=== PATIENT | male | born 1965 | race Caucasian/White ===

== ENCOUNTER 2019-12-14 21:37 | Emergency (ER) | payer MEDICARE, MEDICAID, SELFPAY ==
[2019-12-14 22:06] VITALS: BP 164/84; PULSE 70; RESP 14; O2SAT 100; BMI 20.3
[2019-12-14 22:11] VITALS: BMI 49.4
[2019-12-14 22:19] VITALS: BP 138/75; PULSE 107; RESP 15; TEMP 37; O2SAT 98
[2019-12-15] VITALS (13 sets, daily range): BP systolic 127–201; BP diastolic 83–108; PULSE 64–88; RESP 15–22; TEMP 36.6; O2SAT 98–100
--- NOTE | 2019-12-15 01:05 | ECG_ITS ---
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 Measurements Intervals [place] Rate: 60 P: 34 DC: 220 QRS: 4 QRSD: 93 T: 39 QT: 424 QTc: 426 Interpretive Statements SINUS RHYTHM WITH FIRST DEGREE AV BLOCK Compared to ECG 11/26/2017 16:29:05 First degree AV block now present Electronically Signed On 12-15-2019 10:38:44 CDT by Zackery Toney M.D. [id number]
--- NOTE | 2019-12-15 01:06 | XR_ITS ---
WS: [id number] PORTABLE CHEST HISTORY: dyspnea COMPARISON: 05/09/2017 RIGHT Port-A-Cath with tip in the distal SVC. Mild pulmonary hyperexpansion. No pneumonia. Normal vasculature. No pleural effusion or pneumothorax. Cardiac size: Normal. Mediastinum/Aorta: Normal mediastinum. Healing fracture proximal LEFT humerus. XR/XR chest 1V portable [id number] IMPRESSION: Chronic emphysema. No CHF.
--- NOTE | 2019-12-15 01:20 | ED_ITS ---
HPI - General Adult General: Chief complaint: Fever Stated complaint: swelling in feet/lower legs Time Seen by Provider: 12/15/19 00:31 History of Present Illness: HPI narrative: This patient is a 54-year-old male presenting today with multiple complaints. Although the triage note says fever the patient denies that to me. He denies cough. He has chronic shortness of breath which has not changed recently. He has weakness and easy fatigue. His main concern is swelling in his right calf and his left foot. He said the swelling started in the right calf and was there for about a week before it developed in the left foot. He wondered about a blood clot and has an outpatient ultrasound scheduled for . He has not had any chest pain. He lives at home by himself and notes to me that he has no help. He tells me about how wonderful his time at [facility] was when he was admitted there after hospitalization. He has a history of B-cell lymphoma which was treated with chemotherapy for a while but he said his body was not able to tolerate it and was stopped. He has not had chemotherapy in several years. He also has diabetes and has had infections and amputations on his feet. He denies any history of CHF. He has had a nephrectomy and has 1 kidney with an ileal conduit. No known exposures or suspected exposures to COVID. Onset (ago): week(s) Location: left, right and lower extremity Radiation: non-radiation Severity: moderate Quality: dull Pain Consistency: constant Associated symptoms: Reports dyspnea; Deny chest pain, headache(s), malaise, nausea, rash or vomiting Review of Systems General: Reports: 10 or more systems reviewed and unremarkable except in HPI and below Const: Reports: fatigue; Denies: fever(s), chills or malaise Eyes: Denies: change in vision ENMT: Denies: odynophagia Card: Reports: swelling of feet/ankles and dyspnea on exertion; Denies: chest pain Resp: Reports: dyspnea; Denies: productive cough or non-productive cough GI: Denies: abdominal pain, nausea or vomiting : Denies: flank pain Musc: Denies: neck pain or back pain Skin/Breast: Denies: rash Neuro: Denies: headache(s), numbness in extremities or weakness in extremities Terrell/Lymph: Denies: easy bruising or easy bleeding Physical Exam Const: COMMON NORMALS: no acute distress, patient oriented x3, no limitations and alert GENERAL APPEARANCE: cooperative and comfortable HENMT: HEAD & SCALP: normal to inspection FACE & SINUS: normal facial exam Eye: GENERAL EYE: appearance normal, both eyes and all related structures Neck/C-Spine: COMMON NORMALS: supple, no meningeal signs and no JVD Chest: COMMONS NORMALS: normal inspection of the chest Resp: COMMON NORMALS: normal respiratory effort, No use of accessory muscles and clear to auscultation bilaterally AUSCULTATION: clear to auscultation bilaterally Cardio: COMMON NORMALS: no JVD, regular rate, regular rhythm and No murmurs present (Cardio) RATE: regular rate RHYTHM: regular rhythm GI: COMMON NORMALS: Normal to inspection, nondistended, normoactive bowel sounds present, Soft to palpation and non-tender INSPECTION: Yes normal to inspection AUSCULTATION: Yes normoactive bowel sounds PALPATION: Yes Soft to palpation Back/Pelvis: COMMON NORMALS: thoracic and lumbar spine normal to inspection Extremity: GENERAL: Yes calf tenderness (Right) and Yes edema (Bilateral, right greater than left) OTHER: Status post great toe amputation on the right foot Neuro: COMMON NORMALS: patient oriented x3, moves all extremities, no focal motor deficits and no sensory deficits noted SENSORIUM/ORIENTATION: Yes alert MENINGEAL SIGNS: Yes no meningeal signs Psych: COMMON NORMALS: mental status grossly normal, cooperative and normal affect Skin: COMMON NORMALS: no rashes or lesions noted and turgor normal GENERAL SKIN EXAM: no rashes or lesions noted and turgor normal Course ED course: This patient says that he cannot take care of himself at home. He has no help and is having difficulty getting around at all due to pain in his feet and legs as well as shortness of breath. In the ED he does have some edema in his legs and definite tightness of the right calf. He does have a history of malignancy and is at risk for blood clots. He does have some fluid overload with an elevated BNP. His renal function is poor but it sounds like that is close to his baseline according to what he can recall of his last blood test. His CO2 is 13 and I am not sure the reason for that unless it is related to his kidneys. He has the ileal conduit and has evidence of UTI but it is unclear whether that is a chronic issue or an acute reason for his worsening. He will need to be admitted as he is not able to care for himself at home. He is definitely interested in long-term placement. We will also get an ultrasound of his leg to evaluate for possible DVT. Vital Signs: Vital signs: Vital Signs Temperature 97.9 F 12/15/19 00:17 Pulse Rate 77 12/15/19 08:59 Respiratory Rate 18 12/15/19 08:59 Blood Pressure 150/86 12/15/19 08:59 Pulse Oximetry 98 12/15/19 08:59 [facility] - General Adult Lab Data: Labs: Lab Results 12/15/19 12/15/19 12/15/19 Range/Units 01:53 01:53 01:53 WBC 4.8 (4.0-10.0) 10^3/ uL RBC 3.65 L (4.1-5.3) 10^6/u L Hgb 11.6 L (11.7-16.6) g/dL Hct 34.7 L (42.0-52.0) % MCV 95.1 H (80-94) fL MCH 31.8 (28.0-34.0) pg MCHC 33.4 (30.0-36.0) g/dL RDW 14.6 (12.1-15.1) % Plt Count 68 L (130-400) 10^3/c mm MPV 12.7 H (7.4-10.4) fL Neut % (Auto) 67.3 % Lymph % (Auto) 21.3 % [place] % (Auto) 7.3 % Eos % (Auto) 2.5 % Baso % (Auto) 0.8 % Neut # (Auto) 3.22 (1.8-7.7) 10^3/u L Lymph # (Auto) 1.0 (0.8-4.8) 10^3/u L [place] # (Auto) 0.4 (0.2-0.9) 10^3/u L Eos # (Auto) 0.1 (0.0-0.8) 10^3/u L Baso # (Auto) 0.0 (0.0-0.1) 10^3/u L Nucleated RBC % (a uto) 0 % Nucleated RBCs # 0.0 /100WBC D-Dimer (0-0.59) ug/mIFE U Sodium 139 (136-145) mmol/L Potassium 4.1 (3.5-5.1) mmol/L Chloride 115 H (98-107) mmol/L Carbon Dioxide 13 L (22-29) mmol/L Anion Gap 15.1 (5-19) BUN 35 H (6-20) mg/dL Creatinine 2.5 H (0.7-1.2) mg/dL GFR Calculation 26.9 L (90-130) mL/min Glucose 223 H (65-115) mg/dL Calculated Osmolal ity 303 H (285-295) mOsm/k g Calcium 7.6 L (8.5-10.5) mg/dL Total Bilirubin 0.3 (0.15-1.2) mg/dL AST 23 (0-40) U/L ALT 67 H (0-41) U/L Alkaline Phosphata se 169 H (40-130) IU/L Troponin T Baselin e 31 H (0-15) ng/L Troponin T 120 Min [place] (0-15) ng/L Delta Troponin T (0-10) ABS# Troponin T Hi Sens 6Hr (0-15) ng/L Troponin T Hi Sens 6Hr Delta (0-12) ng/L NT-Pro-B Natriuret Pep 1688 H (0-125) pg/mL Total Protein 5.0 L (6.6-8.7) g/dL Albumin 3.2 L (3.5-5.2) g/dL Globulin 1.8 (1.3-4.6) g/dL Urine Color (Yellow) Urine Appearance (CLEAR) Urine pH (5-7) Ur Specific Gravit y (1.005-1.030) Urine Protein (Negative) Urine Glucose (UA) (Normal) Urine Ketones (Negative) Urine Blood (Negative) Urine Nitrate (Negative) Urine Bilirubin (Negative) Urine Urobilinogen (Negative) mg/dL Ur Leukocyte Leanna ase (Negative) Urine RBC (0-2) /hpf Urine WBC (0-5) /hpf Ur Squamous Epith Cells (0-5) /hpf Amorphous Sediment Urine Bacteria (NONE) /hpf 09/29/20 09/29/20 09/29/20 Range/Units 01:53 02:19 03:33 WBC (4.0-10.0) 10^3/ uL RBC (4.1-5.3) 10^6/u L Hgb (11.7-16.6) g/dL Hct (42.0-52.0) % MCV (80-94) fL MCH (28.0-34.0) pg MCHC (30.0-36.0) g/dL RDW (12.1-15.1) % Plt Count (130-400) 10^3/c mm MPV (7.4-10.4) fL Neut % (Auto) % Lymph % (Auto) % [place] % (Auto) % Eos % (Auto) % Baso % (Auto) % Neut # (Auto) (1.8-7.7) 10^3/u L Lymph # (Auto) (0.8-4.8) 10^3/u L [place] # (Auto) (0.2-0.9) 10^3/u L Eos # (Auto) (0.0-0.8) 10^3/u L Baso # (Auto) (0.0-0.1) 10^3/u L Nucleated RBC % (a uto) % Nucleated RBCs # /100WBC D-Dimer 0.64 H (0-0.59) ug/mIFE U Sodium (136-145) mmol/L Potassium (3.5-5.1) mmol/L Chloride (98-107) mmol/L Carbon Dioxide (22-29) mmol/L Anion Gap (5-19) BUN (6-20) mg/dL Creatinine (0.7-1.2) mg/dL GFR Calculation (90-130) mL/min Glucose (65-115) mg/dL Calculated Osmolal ity (285-295) mOsm/k g Calcium (8.5-10.5) mg/dL Total Bilirubin (0.15-1.2) mg/dL AST (0-40) U/L ALT (0-41) U/L Alkaline Phosphata se (40-130) IU/L Troponin T Baselin e (0-15) ng/L Troponin T 120 Min [place] 29.18 H (0-15) ng/L Delta Troponin T -1.82 L (0-10) ABS# Troponin T Hi Sens 6Hr (0-15) ng/L Troponin T Hi Sens 6Hr Delta (0-12) ng/L NT-Pro-B Natriuret Pep (0-125) pg/mL Total Protein (6.6-8.7) g/dL Albumin (3.5-5.2) g/dL Globulin (1.3-4.6) g/dL Urine Color Yellow (Yellow) Urine Appearance Clear (CLEAR) Urine pH 7 (5-7) Ur Specific Gravit y 1.015 (1.005-1.030) Urine Protein 1+ H (Negative) Urine Glucose (UA) Norm (Normal) Urine Ketones Negative (Negative) Urine Blood 2+ H (Negative) Urine Nitrate Positive H (Negative) Urine Bilirubin Neg (Negative) Urine Urobilinogen Norm (Negative) mg/dL Ur Leukocyte Leanna ase 2+ H (Negative) Urine RBC 0-4 H (0-2) /hpf Urine WBC 15-25 H (0-5) /hpf Ur Squamous Epith Cells 0-4 H (0-5) /hpf Amorphous Sediment Not Reportable Urine Bacteria 2+ H (NONE) /hpf 12/15/19 Range/Units 07:52 WBC (4.0-10.0) 10^3/ uL RBC (4.1-5.3) 10^6/u L Hgb (11.7-16.6) g/dL Hct (42.0-52.0) % MCV (80-94) fL MCH (28.0-34.0) pg MCHC (30.0-36.0) g/dL RDW (12.1-15.1) % Plt Count (130-400) 10^3/c mm MPV (7.4-10.4) fL Neut % (Auto) % Lymph % (Auto) % [place] % (Auto) % Eos % (Auto) % Baso % (Auto) % Neut # (Auto) (1.8-7.7) 10^3/u L Lymph # (Auto) (0.8-4.8) 10^3/u L [place] # (Auto) (0.2-0.9) 10^3/u L Eos # (Auto) (0.0-0.8) 10^3/u L Baso # (Auto) (0.0-0.1) 10^3/u L Nucleated RBC % (a uto) % Nucleated RBCs # /100WBC D-Dimer (0-0.59) ug/mIFE U Sodium (136-145) mmol/L Potassium (3.5-5.1) mmol/L Chloride (98-107) mmol/L Carbon Dioxide (22-29) mmol/L Anion Gap (5-19) BUN (6-20) mg/dL Creatinine (0.7-1.2) mg/dL GFR Calculation (90-130) mL/min Glucose (65-115) mg/dL Calculated Osmolal ity (285-295) mOsm/k g Calcium (8.5-10.5) mg/dL Total Bilirubin (0.15-1.2) mg/dL AST (0-40) U/L ALT (0-41) U/L Alkaline Phosphata se (40-130) IU/L Troponin T Baselin e (0-15) ng/L Troponin T 120 Min [place] (0-15) ng/L Delta Troponin T (0-10) ABS# Troponin T Hi Sens 6Hr 31.28 H (0-15) ng/L Troponin T Hi Sens 6Hr Delta 0.28 (0-12) ng/L NT-Pro-B Natriuret Pep (0-125) pg/mL Total Protein (6.6-8.7) g/dL Albumin (3.5-5.2) g/dL Globulin (1.3-4.6) g/dL Urine Color (Yellow) Urine Appearance (CLEAR) Urine pH (5-7) Ur Specific Gravit y (1.005-1.030) Urine Protein (Negative) Urine Glucose (UA) (Normal) Urine Ketones (Negative) Urine Blood (Negative) Urine Nitrate (Negative) Urine Bilirubin (Negative) Urine Urobilinogen (Negative) mg/dL Ur Leukocyte Leanna ase (Negative) Urine RBC (0-2) /hpf Urine WBC (0-5) /hpf Ur Squamous Epith Cells (0-5) /hpf Amorphous Sediment Urine Bacteria (NONE) /hpf Discharge Plan Discharge Patient Disposition: Home Clinical Impression: Cystitis, Chronic renal disease, Diabetes mellitus Condition: Stable Prescriptions: New Cipro 250 mg tablet 250 mg PO BID Qty: 14 RF: 0 No Action doxepin 150 mg Capsule 150 mg PO DAILY RF: 0 zolpidem 10 mg Tablet 10 mg PO BEDTIME PRN (Reason: Sleep) RF: 0 alprazolam 1 mg Tablet 1 mg PO TID PRN (Reason: unknown) RF: 0 pregabalin 100 mg Capsule 100 mg PO BID RF: 0 metoprolol tartrate 100 mg tablet 100 mg PO BID RF: 0 levothyroxine 50 mcg Tablet 50 mcg PO DAILY RF: 0 sumatriptan succinate 100 mg 100 mg PO PRN PRN (Reason: Headache) RF: 0 amlodipine 5 mg tablet 5 mg PO DAILY RF: 0 Lantus Solostar U-100 Insulin 100 unit/mL (3 mL) insulin pen 15 unit SUBCUT BEDTIME RF: 0 Novolog PenFill U-100 Insulin See Rx Instructions .ROUTE .COMPLEX RF: 0 Discharge Orders: Discharge Order (Routine); Ordered 12/15/19 Ordered By: Mando De Referrals: Briana Hu FNP [Referring] - Activity Restrictions/Additional Instructions: Follow-up with your primary care doctor in the next 2 to 3 days return if worsens Discharge Date/Time: 12/15/19 09:03 Coding Level of Care Code ED Manager Laboratory for [facility] Fwd Exam Comprehensive
[2019-12-15 02:11] LABS: Basophils % 0.8 %; Eosinophils # 0.1 10^3/uL (0.0-0.8); Eosinophils % 2.5 %; Hematocrit 34.7 % (42.0-52.0); Hemoglobin 11.6 g/dL (11.7-16.6); Lymphocytes % 21.3 %; Mean Corpuscular HGB Conc 33.4 g/dL (30.0-36.0); Mean Corpuscular Hemoglobin 31.8 pg (28.0-34.0); Mean Corpuscular Volume 95.1 fL (80-94); Mean Platelet Volume 12.7 fL (7.4-10.4); Monocytes # 0.4 10^3/uL (0.2-0.9); Monocytes % 7.3 %; Neutrophils # 3.22 10^3/uL (1.8-7.7); Neutrophils % 67.3 %; Nucleated Red Blood Cells % 0 %; Platelet Count 68 10^3/cmm (130-400); Red Blood Count 3.65 10^6/uL (4.1-5.3); Red Cell Distribution Width 14.6 % (12.1-15.1); White Blood Count 4.8 10^3/uL (4.0-10.0)
[2019-12-15 02:26] LABS: D Dimer 0.64 ug/mIFEU (0-0.59)
[2019-12-15 02:30] LABS: Troponin(5th) Baseline 31 ng/L (0-15)
[2019-12-15 02:39] LABS: Alanine Aminotransferase 67 U/L (0-41); Albumin Level 3.2 g/dL (3.5-5.2); Alkaline Phosphatase 169 IU/L (40-130); Blood Urea Nitrogen 35 mg/dL (6-20); Calcium 7.6 mg/dL (8.5-10.5); Carbon Dioxide 13 mmol/L (22-29); Chloride 115 mmol/L (98-107); Globulin 1.8 g/dL (1.3-4.6); Glomerular Filtration Rate 26.9 mL/min (90-130); Glucose 223 mg/dL (65-115); NT Pro B Type Natriuretic Pept 1688 pg/mL (0-125); Osmolality Calculated 303 mOsm/kg (285-295); Sodium 139 mmol/L (136-145); Total Bilirubin 0.3 mg/dL (0.15-1.2)
[2019-12-15 02:40] LABS: Anion Gap 15.1 (5-19); Aspartate Amino Transferase 23 U/L (0-40); Potassium 4.1 mmol/L (3.5-5.1)
[2019-12-15 02:52] LABS: Add Urine Microscopic? YES; Bacteria Urine 2+ /hpf; Bilirubin Urine Neg (Negative); Blood Urine 2+ (Negative); Glucose Urine UA Norm (Normal); Ketones Urine Negative (Negative); Leukocyte Esterase Urine 2+ (Negative); Nitrate Urine Positive (Negative); Protein Urine 1+ (Negative); RBC Urine 0-4 /hpf (0-2); Specific Gravity, Urine 1.015 (1.005-1.030); Squamous Epithelial Cell Urine 0-4 /hpf (0-5); Urine Appearance Clear (CLEAR); Urine Color Yellow (Yellow); Urobilinogen Urine Norm (Negative); WBC Urine 15-25 /hpf (0-5); pH Urine 7 (5-7)
[2019-12-15 02:53] LABS: Add Urine Culture? Yes
--- NOTE | 2019-12-15 03:05 | ECG_ITS ---
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 Measurements Intervals [place] Rate: 67 P: 58 TN: 220 QRS: 68 QRSD: 90 T: 51 QT: 413 QTc: 439 Interpretive Statements SINUS RHYTHM WITH FIRST DEGREE AV BLOCK POSSIBLE RIGHT VENTRICULAR CONDUCTION DELAY [RSR (QR) IN V1/V2] MINIMAL VOLTAGE CRITERIA FOR LVH, CONSIDER NORMAL VARIANT [MEETS CRITERIA IN ONE OF: R(aVL), S(V1), R(V5), R(V5/V6)+S(V1)] Compared to ECG 12/15/2019 01:18:58 No significant changes Electronically Signed On 12-15-2019 10:49:01 CDT by Zackery Toney M.D. [id number]
[2019-12-15] MEDS: FUROsemide 10 mg/mL SDV 2mL 20 MG IVP (04:05)
[2019-12-15 04:26] LABS: Troponin 5 2HR 29.18 ng/L (0-15); Troponin 5 2HR Delta -1.82 ABS# (0-10)
--- NOTE | 2019-12-15 04:48 | USCV_ITS ---
ReyesKo Age: 54 Gender: M : 1965 Exam Date: 12/15/2019 05:31 Ordering Phys: Tiana Tafoya MD Technologist: Cindy Lee [place]am [place] [facility] [place]: SWELLING HISTORY: Lower extremity swelling. PROCEDURES: Venous duplex imaging was performed in bilateral lower extremities. The following venous structures were evaluated: common femoral vein, profunda vein, proximal portion of the greater saphenous vein, superficial femoral vein, and the popliteal vein. In addition, the posterior tibial and peroneal trunk were evaluated. Serial compression, augmentation maneuvers, and spectral Doppler flow evaluation were performed. FINDINGS: Normal 2-D Doppler and augmentation and compressibility throughout the lower extremity venous structures. Additional imaging through the proximal calf veins also reveals no thrombus. Limited evaluation of the greater saphenous vein is patent with no thrombus. CONCLUSIONS No DVT bilateral lower extremities. Dr. Domenica Fernandes DO (Electronically Signed) Final Date: 15 December 2019 14:27 S
--- NOTE | 2019-12-15 07:05 | ECG_ITS ---
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 Measurements Intervals [place] Rate: 71 P: 53 GA: 205 QRS: 6 QRSD: 85 T: 42 QT: 375 QTc: 408 Interpretive Statements SINUS RHYTHM Compared to ECG 12/15/2019 02:51:39 First degree AV block no longer present Electronically Signed On 12-15-2019 10:45:58 CDT by Zackery Toney M.D. [id number]
--- NOTE | 2019-12-15 07:05 | PC.NURSE ---
Patient states he feels like he would be more comfortable at home. He is not sure he would be comfortable here and he is in a lot of pain. He states his pain is an 8 on a scale of 1-10 but he does not want pain medication.
[2019-12-15 08:14] LABS: Troponin 5 6HR 31.28 ng/L (0-15); Troponin 5 6HR Delta 0.28 ng/L (0-12)
== END 2019-12-15 09:03 | disposition home or self-care (01) ==
PROVIDERS: Emergency Medicine; Nurse Practitioner Family; Emergency Provider Family Medicine; PCP Family Medicine
DX: N30.90 Cystitis, unspecified without hematuria (principal); E11.22 Type 2 diabetes mellitus with diabetic chronic kidney disease; N18.9 Chronic kidney disease, unspecified; Z79.4 Long term (current) use of insulin
CPT/HCPCS: 12345; 71045; 80053; 81001; 83880; 84484; 85025; 85378; 87077; 87086; 87186; 93005; 93970; 96374; 96375; 99283; 99284; J1940